=== PATIENT | female | born 1940 | race Caucasian/White ===

== ENCOUNTER 2021-12-11 09:50 | Emergency (ER) | payer OTHER ==
--- OUTSIDE RECORDS SUMMARY | 2021-12-11 09:57 | XMS REPORT | Continuity of Care Document ---
:1940 Author Organization [facility] t Address [address] [place] [address] Care Team Providers Name Role Phone Alek Thompson MD Primary Care Physician [phone] Darci Palumbo CRNA Attending Clinician CARMEN GARCIA Attending Clinician Unavailable Problems This patient has no known problems. Allergies, Adverse Reactions, Alerts This patient has no known allergies or adverse reactions. Social History Social Habit Start Date Stop Date Quantity Comments Source History SDOH [facility] Alcohol Std Drinks Medica l Center History SDOH [facility] Alcohol Binge Medical Par[facility] ter History SDCT [facility] Alcohol Comment Medical C enter Alcohol intake 2018-10-17 2018-10-[address] [facility] 00:[facility] 00:00:00 non-drinker of Medical Ce nter alcohol (finding) Tobacco use and 2018-10-13 2018-10-[address] [facility] exposure 00:[facility]00 [facility]:00 [facility] Center History SDOH 2018-10-13 2018-10-[address] [facility] Alcohol Frequency 00:00:00 00:00:00 Medical Center Sex Assigned At [address] [facility] 00[facility] Smoking Status Start Date Stop Date Source Never smoker [facility] Medications Ordered Filled Start Stop Current Ordering Indication Dosage Frequency Signature Comments Components Source Medication Medication Date Date Medication? Clinician (SIG) Name Name metoprolol Yes 50mg QD Take [address] (TOPROL-XL) 8-02 by mouth Luke s 50 MG 24 hr 19:01: daily. Medi asim tablet 32 Center levothyroxi Yes 100ug Take [address] ne 8-02 mcg by [facility] (SYNTHROID, 19:01: mouth Medic al LEVOTHROID) 32 Every Center 100 MCG morning on tablet an empty stomach. amLODIPine Yes 5mg QD Take [address] (NORVASC) 5 802 by mouth Luke s MG tablet 19:01: daily. Medica l 32 Center losartan-hy Yes 1{tbl} QD Take [address] drochloroth 8 tablet by [facility] 19:01: mouth Medical (HYZAAR) 32 daily. Center 100-12.5 mg per tablet escitalopra Yes 10mg QD Take [address] [facility] oxalate 10-13 by mouth [facility] (LEXAPRO) 19:01: daily. Medica l 10 MG 32 Center tablet Immunizations Ordered Immunization Filled Immunization Date Status Commen ts Source Name Name Tdap 2018-10-13 [facility] 00:00:00 Medical Center Procedures This patient has no known procedures. Encounters Start End Encounter Admission Attending Care Care Encounter Source Date/Time Date/Time Type Type Clinicians Facility Department ID 2021-04-23 Outpatient [facility] [id number] Common 13:42:07 [facility] 2018-10-25 2018-10-25 Anesthesia Palumbo, [facility] [id number] 11:04:00 12:42:00 Darci Montoya [id number] [place] [id number] Surgical [id number] Center 020 Results Test Description Test Time Test Comments Results Result Comments Source MAGNESIUM, RANDOM URINE 2018-10-18 07:17:00 Test Item Value Reference Range Interpretation Comme nts MAGNESIUM URINE (BEAKER) (test code = 834) 82.0 mg/dL Reference Range: No NormalsRAD, WRIST, LEFT, COMPLETE (MIN 3 VIEWS)2018-10-13 18:24:00POST REDUCTION XR IN SPLINT 3 viewsReason for exam:->FALLReason for exam:->ARM PAINFINAL REPORT TECHNIQUE: Minimal three views of the left wrist. INDICATION: FALLARM PAIN. COMPARISON: None. FINDINGS/IMPRESSION:Interval placement of a splint for the left distal radial and ulnar styloid fractures which are now in near anatomic alignment with only slight overlap ofthe distal radial fragment and 0.4 cm radial displacement of the distal radial fragment. Moderate degenerative changes of the carpometacarpal joint of the thumb. Signed: Joshua Abdul MDReport Verified Date/Time: 10/13/2018 18:24:09 Reading Location: [address] Body Reading Room RAD, WRIST, LEFT, COMPLETE (MIN 3 VIEWS)2018-10-13 17:42:00WITH ORTHO AT BEDSIDE (as soon as able) for reductionI am available nowReason for exam:->FALLReason for exam:->ARM PAINShould this be performed at the bedside?->YesFINAL REPORT TECHNIQUE: Minimum three views of the left wrist. One view of the left hip INDICATION: FALLARM PAIN. COMPARISON: Radiographs from two hours prior. FINDINGS:LEFT WRISTInterval reduction of the left distal radius and ulnar styloid fractures with near anatomic alignment and slight overlap. Soft tissue swelling of the wrist.Moderate degenerative changes of the carpometacarpal joint of the thumb. LEFT HIPNo definite fracture on this single view. IMPRESSION: Interval reduction of the left distal radius (with intra-articular extension) and ulnar styloid fractures with near anatomic alignment. Signed: Joshua Abdulort Verified Date/Time: 10/13/2018 17:42:41 Reading Location: [facility] Body Reading Room RAD, HIP, 1 VIEW, [id number] 17:42:00Reason for exam:->FALLReason for exam:->ARM PAINReason for exam:->HIP PAINReason for exam:->KNEE PAINFINAL REPORT TECHNIQUE: Minimum three views of the left wrist. One view of the left hip INDICATION: FALLARM PAIN. COMPARISON: Radiographs from two hours prior. FINDINGS:LEFT WRISTInterval reduction of the left distal radius and ulnar styloid fractures with near anatomic alignment and slight overlap. Soft tissue swelling of the wrist.Moderate degenerative changes of the carpometacarpal joint of the thumb. LEFT HIPNo definite fracture on this single view. IMPRESSION: Interval reduction of the left distal radius (with intra-articular extension) and ulnar styloid fractures with near anatomic alignment. Signed: Joshua Abdul Verified Date/Time: 10/13/2018 17:42:41 Reading Location: [facility] C013Y CT Body Reading Room KETONE, [id number] 15:50:00 Test Item Value Reference Range Interpretation Comments KETONES, BLOOD (BEAKER) (test code 0.1 mmol/L <0.4 = 1103) RAD, ELBOW, 3 VIEWS, [id number] 15:35:00Reason for exam:->traumaShould this be performed at the bedside?->NoFINAL REPORT TECHNIQUE: Frontal, lateral, and oblique radiographs of the left elbow dated 10/13/2018 HISTORY: Trauma COMPARISON: None. FINDINGS:Lateral radiograph was not obtained. No fracture or dislocation. Bones are osteopenic. No joint space narrowing. No bone erosion or soft tissue nodule seen. No radiodense foreign body or subcutaneous emphysema. IMPRESSION:No fracture or dislocation. Signed: Janiya Maria Verified Date/Time: 10/13/2018 15:35:41 Reading Location: [facility] Mammo Reading Room RAD, HIP, 2 VIEWS, [id number] 15:34:00 Reason for exam:->FALLReason for exam:->ARM PAINReason for exam:->HIP PAINReason for exam:->KNEE PAINShould this be performed at the bedside?->NoFINAL REPORT TECHNIQUE: Frontal and lateral radiographs of the left hip dated 10/13/2018 HISTORY: Hip pain COMPARISON: None. FINDINGS:Three radiodense structures projected over the lateral acetabulum and right femoral neck. On the lateral view these are seen to be in the soft tissues . No fracture or dislocation. Bones are osteopenic. No joint space narrowing. No bone erosion or soft tissue nodule seen. No subcutaneous emphysema. IMPRESSION:No fracture or dislocation. Signed: Janiya Maria MDReport Verified Date/Time: 10/13/2018 15:34:06 Reading Location: [facility] Reading Ro om , FOREARM, 2 VIEWS, [id number] 15:28:00Reason for exam:->traumaShould this be performed at the bedside?->NoFINAL REPORT TECHNIQUE: Frontal, lateral, and oblique radiographs of the left wrist as well as frontal and lateral radiographs of the left forearm dated 10/13/2018 HISTORY: Arm pain COMPARISON: None. FINDINGS:There is a horizontal distal radial fracture with dorsal displacement of the distal fracture fragments. An ulnar styloid fractures also noted. The radiocarpal joint is intact.Bones are osteopenic. No joint space narrowing. No bone erosion or soft tissue nodule seen. No radiodense foreign body or subcutaneous emphysema. IMPRESSION:Distal radial and ulnar fractures as described above. Signed: Janiya Maria MDReport Verified Date/Time: 10/13/2018 15:28:53 Reading Location: [facility] Reading Room RAD, WRIST, LEFT, COMPLETE (MIN 3 VIEWS)2018-10-13 15:28:00Reason for exam:- >FALLReason for exam:->ARM PAINReason for exam:->HIP PAINReason for exam:->KNEE PAINShould this be performed at the bedside?->NoFINAL REPORT TECHNIQUE: Frontal, lateral, and oblique radiographs of the left wrist as well as frontal and lateral radiographs of the left forearm dated 10/13/2018 HISTORY: Arm pain COMPARISON: None. FINDINGS:There is a horizontal distal radial fracture with dorsal displacement of the distal fracture fragments. An ulnar styloid fractures also noted. The radiocarpal joint is intact.Bones are osteopenic. No joint space narrowing. No bone erosion or soft tissue nodule seen. No radiodense foreign body or subcutaneous emphysema. IMPRESSION:Distal radial and ulnar fractures as described above. Signed: Janiya Maria MDReport Verified Date/Time: 10/13/2018 15:28:53 Reading Location: [facility] Reading Room [facility] [id number] 14:37:00 Test Item Value Reference Range Interpretation Comments SODIUM (BEAKER) 133 meq/L 136-145 L (test code = 381) POTASSIUM (BEAKER) 4.6 meq/L 3.5-5.1 (test code = 379) CHLORIDE (BEAKER) 103 meq/L 98-107 (test code = 382) CO2 (BEAKER) (test 18 meq/L 22-29 L code = 355) BLOOD UREA NITROGEN 26 mg/dL 7-21 H (BEAKER) (test code = 354) CREATININE (BEAKER) 1.47 mg/dL 0.57-1.25 H (test code = 358) GLUCOSE RANDOM 410 mg/dL 70-105 HH (BEAKER) (test code = 652) CALCIUM (BEAKER) 9.5 mg/dL 8.4-10.2 (test code = 697) EGFR (BEAKER) (test mL/min/1.73 INSUFFIC IENT CLINICAL code = 1092) sq m DATA TO CALCULA TE ESTIMATED GFR. CBC W/PLT COUNT & AUTO [id number] 14:25:00 Test Item Value Reference Range Interpretation Comments WHITE BLOOD CELL COUNT (BEAKER) 12.8 K/ L 3.5-10.5 H (test code = 775) RED BLOOD CELL COUNT (BEAKER) 4.50 M/ L 3.93-5.22 (test code = 761) HEMOGLOBIN (BEAKER) (test code = 13.9 GM/DL 11.2-15.7 410) HEMATOCRIT (BEAKER) (test code = 41.6 % 34.1-44.9 411) MEAN CORPUSCULAR VOLUME (BEAKER) 92.4 fL 79.4-94.8 (test code = 753) MEAN CORPUSCULAR HEMOGLOBIN 30.9 pg 25.6-32.2 (BEAKER) (test code = 751) MEAN CORPUSCULAR HEMOGLOBIN CONC 33.4 GM/DL 32.2-35.5 (BEAKER) (test code = 752) RED CELL DISTRIBUTION WIDTH 13.2 % 11.7-14.4 (BEAKER) (test code = 412) PLATELET COUNT (BEAKER) (test 242 K/CU MM 150-450 code = 756) MEAN PLATELET VOLUME (BEAKER) 9.6 fL 9.4-12.3 (test code = 754) NUCLEATED RED BLOOD CELLS 0 /100 WBC 0-0 (BEAKER) (test code = 413) NEUTROPHILS RELATIVE PERCENT 81 % (BEAKER) (test code = 429) LYMPHOCYTES RELATIVE PERCENT 11 % (BEAKER) (test code = 430) MONOCYTES RELATIVE PERCENT 5 % (BEAKER) (test code = 431) EOSINOPHILS RELATIVE PERCENT 2 % (BEAKER) (test code = 432) BASOPHILS RELATIVE PERCENT 1 % (BEAKER) (test code = 437) NEUTROPHILS ABSOLUTE COUNT 10.34 K/ L 1.56-6.13 H (BEAKER) (test code = 670) LYMPHOCYTES ABSOLUTE COUNT 1.36 K/ L 1.18-3.74 (BEAKER) (test code = 414) MONOCYTES ABSOLUTE COUNT (BEAKER) 0.69 K/ L 0.24-0.36 H (test code = 415) EOSINOPHILS ABSOLUTE COUNT 0.28 K/ L 0.04-0.36 (BEAKER) (test code = 416) BASOPHILS ABSOLUTE COUNT (BEAKER) 0.06 K/ L 0.01-0.08 (test code = 417) IMMATURE GRANULOCYTES-RELATIVE 0 % 0-1 PERCENT (BEAKER) (test code = 4497)
[2021-12-11] MEDS ORDERED: ACETAMINOPHEN 500 MG TAB ONE (11:17)
[2021-12-11] MEDS ORDERED: HYDRALAZINE HCL 20 MG/ML VIAL ONE ×2 (11:17→15:01)
[2021-12-11 11:33] LABS: Absolute Lymphocytes (CBC) 1.5 K/uL (0.7-4.9); Hematocrit 41.4 % (36.0-45.0); Lymphocytes % 20.4 % (15.3-44.8); MCV 89.9 fL (80-100); MPV 7.2 fL (7.6-11.3)
--- NOTE | 2021-12-11 11:46 | RAD REPORT ---
EXAM DESCRIPTION: CT - Head Brain Wo Cont - 12/11/2021 11:36 am CLINICAL HISTORY: Headache COMPARISON: None. TECHNIQUE: Computed axial tomography of the head was obtained. IV contrast was not requested. All CT scans are performed using dose optimization technique as appropriate and may include automated exposure control or mA/KV adjustment according to patient size. FINDINGS: An intracranial bleed is not seen . The ventricles are normal in caliber. Mild low-density areas within periventricular, deep and subcortical white matter likely ischemic blue ges secondary to small vessel disease No extra-axial fluid collection is noted. Fluid within the sinuses/ mastoids is not seen. IMPRESSION: No acute intracranial abnormality is seen. If patient's symptoms persist MRI of the bra in would be recommended.
--- NOTE | 2021-12-11 11:49 | RAD REPORT ---
EXAM DESCRIPTION: Branden Single View12/11/2021 11:36 am CLINICAL HISTORY: Hypertension COMPARISON: 2012 FINDINGS: The lungs appear clear of acute infiltrate. The heart is normal size IMPRESSION: No acute abnormalities displayed
[2021-12-11 11:54] LABS: Potassium 3.3 mmol/L (3.5-5.1)
--- NOTE | 2021-12-11 12:40 | EDPHYS ---
Physician Documentation [facility] Name: Joanne Abraham Age: 81 yrs Sex: Female : 1940 Arrival Date: 12/11/2021 Time: 09:57 Bed 17 Private MD: ED Physician Aris Quiñonez HPI: 12/11 17:28 This 81 yrs old Female presents to ER via EMS with complaints of High Blood Pressure. kdr 17:28 Patient was recently switched from metoprolol to hydralazine for blood pressure kdr control. Last 24 to 48 hours she has not felt right. She has felt generally tired and feels like her head is swimming with a mild frontal headache. Additionally, her blood pressure has not been as well-controlled as previously.. Onset: The symptoms/episode began/occurred gradually, 3 day(s) ago. Severity of symptoms: At their worst the symptoms were mild moderate just prior to arrival, in the emergency department the symptoms are unchanged. The patient has not experienced similar symptoms in the past. The patient has been recently seen by a physician: the patient's primary care provider, Dr. Thompson. Historical: - Allergies: 10:08 No Known Allergies; ll1 - PMHx: 10:08 Diabetes mellitus; Hypertensive disorder; Hypothyroidism; Hypercholesterolemia; ll1 - PSHx: 10:08 None; ll1 - Immunization history:: Client reports receiving the 2nd dose of the Covid vaccine. - Social history:: Smoking status: Patient/guardian denies using tobacco, the patient reports quitting approximately 20 years ago. ROS: 17:28 Constitutional: Negative for fever, chills, and weight loss, Eyes: Negative for injury, kdr pain, redness, and discharge, Neck: Negative for injury, pain, and swelling, Cardiovascular: Negative for chest pain, palpitations, and edema, Respiratory: Negative for shortness of breath, cough, wheezing, and pleuritic chest pain, Back: Negative for injury and pain, : Negative for injury, bleeding, discharge, and swelling, MS/Extremity: Negative for injury and deformity, Skin: Negative for injury, rash, and discoloration, Neuro: Negative for headache, weakness, numbness, tingling, and seizure activity. Psych: Negative for depression, anxiety, suicide ideation, homicidal ideation, and hallucinations, Allergy/Immunology: Negative for hives, rash, and allergies, Endocrine: Negative for neck swelling, polydipsia, polyuria, polyphagia, and marked weight changes, Hematologic/Lymphatic: Negative for swollen nodes, abnormal bleeding, and unusual bruising. 17:28 Abdomen/GI: Positive for 17:28 Neuro: Positive for dizziness, headache, weakness. Exam: 17:28 Constitutional: This is a well developed, well nourished patient who is awake, alert, kdr and in no acute distress. Head/Face: Normocephalic, atraumatic. Eyes: Pupils equal round and reactive to light, extra-ocular motions intact. Lids and lashes normal. Conjunctiva and sclera are non-icteric and not injected. Cornea within normal limits. Periorbital areas with no swelling, redness, or edema. Neck: Trachea midline, no thyromegaly or masses palpated, and no cervical lymphadenopathy. Supple, full range of motion without nuchal rigidity, or vertebral point tenderness. No Meningismus. Chest/axilla: Normal chest wall appearance and motion. Nontender with no deformity. No lesions are appreciated. Cardiovascular: Regular rate and rhythm with a normal S1 and S2. No gallops, murmurs, or rubs. Normal PMI, no JVD. No pulse deficits. Respiratory: Lungs have equal breath sounds bilaterally, clear to auscultation and percussion. No rales, rhonchi or wheezes noted. No increased work of breathing, no retractions or nasal flaring. Abdomen/GI: Soft, non-tender, with normal bowel sounds. No distension or tympany. No guarding or rebound. No evidence of tenderness throughout. Back: No spinal tenderness. No costovertebral tenderness. Full range of motion. Skin: Warm, dry with normal turgor. Normal color with no rashes, no lesions, and no evidence of cellulitis. MS/ Extremity: Pulses equal, no cyanosis. Neurovascular intact. Full, normal range of motion. Neuro: Awake and alert, GCS 15, oriented to person, place, time, and situation. Cranial nerves II-XII grossly intact. Motor strength 5/5 in all extremities. Sensory grossly intact. Cerebellar exam normal. Normal gait. Psych: Awake, alert, with orientation to person, place and time. Behavior, mood, and affect are within normal limits. Vital Signs: 10:09 Pulse 91; Resp 17; Temp 98.2; Pulse Ox 97% ; Weight 82.55 kg; Height 5 ft. 4 in. ll1 (162.56 cm); Pain 5/10; 10:09 BP 195 / 84; Pulse 86; kr3 11:27 BP 197 / 90; Pulse 83; ap3 11:49 BP 171 / 74; ap3 12:40 BP 139 / 65; Pulse 98; Resp 20; Pulse Ox 98% on R/A; eh3 13:40 BP 176 / 78; Pulse 100; Resp 18; Pulse Ox 98% on R/A; eh3 14:40 BP 189 / 78; Pulse 80; Resp 18; Pulse Ox 96% on R/A; eh3 15:40 BP 125 / 63; Pulse 97; Resp 15; Pulse Ox 98% on R/A; eh3 10:09 Body Mass Index 31.24 (82.55 kg, 162.56 cm) ll1 MDM: 12:40 Patient medically screened. kdr 17:28 Data reviewed: vital signs, nurses notes, lab test result(s), radiologic studies. kdr Counseling: I had a detailed discussion with the patient and/or guardian regarding: the historical points, exam findings, and any diagnostic results supporting the discharge/admit diagnosis, lab results, radiology results, the need for outpatient follow up. ED course: I spoke with Dr. Thompson and he advised that the patient should continue with metoprolol 50 mg p.o. daily and follow-up with him in the office. During the stay, the patient's blood pressure responded well initially to hydralazine but then began to elevate again. She was given more hydralazine and the 50 mg of metoprolol. Patient had not taking any blood pressure control medication as yet today. Patient improved and was discharged in good condition. Patient was happy with the care provided plan for discharge and follow-up. 12/11 11:14 Order name: Basic Metabolic Panel kdr 12/11 11:14 Order name: CBC with Diff kdr 12/11 11:14 Order name: NT PRO-BNP kdr 12/11 11:14 Order name: Troponin HS kdr 12/11 11:35 Order name: CBC with Automated Diff; Complete Time: 12:34 EDMS 12/11 11:54 Order name: Basic Metabolic Panel; Complete Time: 12:34 EDMS 12/11 11:14 Order name: XRAY Chest (1 view) kdr 12/11 11:14 Order name: CT Head Brain wo Cont kdr 12/11 11:46 Order name: CT; Complete Time: 12:34 EDMS 12/11 11:49 Order name: RAD; Complete Time: 12:34 EDIA 12/11 11:54 Order name: Troponin High Sensitivity; Complete Time: 12:34 EDIA 12/11 11:54 Order name: NT PRO-BNP; Complete Time: 12:34 EDIA 12/11 11:14 Order name: VS Recheck; Complete Time: 11:30 kdr 12/11 11:14 Order name: EKG; Complete Time: 11:15 kdr 12/11 11:14 Order name: Cardiac monitoring; Complete Time: 11:14 kdr 12/11 11:14 Order name: EKG - Nurse/Tech; Complete Time: 11:14 kdr 12/11 11:14 Order name: IV Saline Lock; Complete Time: 11:30 kdr 12/11 11:14 Order name: Labs collected and sent; Complete Time: 11:30 [facility] 12/11 11:14 Order name: O2 Per Protocol; Complete Time: 11:14 kdr 12/11 11:14 Order name: O2 Sat Monitoring; Complete Time: 11:14 kdr Administered Medications: 11:27 Drug: hydrALAZINE 20 mg Route: IVP; Site: right antecubital; ap3 12:39 Follow up: Response: Blood pressure is lowered eh3 11:27 Drug: Tylenol 1000 mg Route: PO; ap3 12:39 Follow up: Response: Pain is decreased eh3 12:49 Not Given (Physician Discretion): Metoprolol TARTRATE 50 mg PO once eh3 13:34 Drug: Motrin (ibuprofen) 600 mg Route: PO; eh3 14:37 Follow up: Response: Pain is unchanged, physician notified eh3 14:37 Drug: Metoprolol TARTRATE 50 mg Route: PO; eh3 15:44 Follow up: Response: Blood pressure is unchanged eh3 15:44 Drug: hydrALAZINE 10 mg Route: IVP; Site: right antecubital; eh3 15:44 Follow up: Response: Blood pressure is lowered eh3 Disposition Summary: 12/11/21 12:40 Discharge Ordered Location: Home kdr Problem: new kdr Symptoms: have improved kdr Condition: Stable kdr Diagnosis - Hypertensive heart disease without heart failure kdr Followup: kdr - With: Alek Thompson MD - When: 2 - 3 days - Reason: If symptoms return, Further diagnostic work-up, Recheck today's complaints, Continuance of care, Re-evaluation by your physician Discharge Instructions: - Discharge Summary Sheet kdr - Hypertension, Adult, [id number] kdr Forms: - Medication Reconciliation Form kdr - Thank You Letter kdr Prescriptions: - Metoprolol Tartrate 50 mg Oral Tablet - take 1 tablet by ORAL route once daily take with meal; 20 tablet; Refills: 0, kdr Product Selection Permitted Signatures: Dispatcher [employer] Aris Rosas MD MD kdr Amna Soriano RN RN ap3 Rafiq Cuevas RN RN ll1 Smitha Peralta RN RN eh3
--- NOTE | 2021-12-11 12:40 | ER ---
Nurse's Notes [facility] Name: Joanne Abraham Age: 81 yrs Sex: Female : 1940 Arrival Date: 12/11/2021 Time: 09:57 Bed 17 Private MD: Diagnosis: Hypertensive heart disease without heart failure Presentation: 12/11 10:09 Chief complaint: Patient states: Her Doctor took her off metoprolol and started her on ll1 hydralazine for the past 3 days. Yesterday, she just didn't feel right. Export tired after going to [employer] [facility] from pharmacy. Feels like her head is swimming. Coronavirus screen: Vaccine status: Patient reports receiving the 2nd dose of the covid vaccine. Client denies travel out of the [place] in the last 14 days. At this time, the client does not indicate any symptoms associated with coronavirus-19. Ebola Screen: Patient denies travel to an Ebola-affected area in the 21 days before illness onset. Initial Sepsis Screen: Does the patient meet any 2 criteria? HR > 90 bpm. No. Patient's initial sepsis screen is negative. Does the patient have a suspected source of infection? No. Patient's initial sepsis screen is negative. Risk Assessment: Do you want to hurt yourself or someone else? Patient reports no desire to harm self or others. Onset of symptoms was December 10, 2021. 10:09 Method Of Arrival: EMS ll1 10:09 Acuity: CARLY 3 ll1 10:12 Chief complaint: EMS states: BP 180/100, 200/100, HR 90 with PVC's . Fingerstick 160. ll1 20 G R AC. Triage Assessment: 10:11 General: Appears in no apparent distress. Behavior is calm, cooperative, appropriate ll1 for age. Pain: Complains of pain in neck Pain currently is 5 out of 10 on a pain scale. Quality of pain is described as aching. Neuro: Reports dizziness, weakness. Musculoskeletal: Reports pain in neck. Historical: - Allergies: 10:08 No Known Allergies; ll1 - PMHx: 10:08 Diabetes mellitus; Hypertensive disorder; Hypothyroidism; Hypercholesterolemia; ll1 - PSHx: 10:08 None; ll1 - Immunization history:: Client reports receiving the 2nd dose of the Covid vaccine. - Social history:: Smoking status: Patient/guardian denies using tobacco, the patient reports quitting approximately 20 years ago. Screenin:30 Abuse screen: Denies threats or abuse. Nutritional screening: No deficits noted. ap3 Tuberculosis screening: No symptoms or risk factors identified. Fall Risk None identified. Assessment: 12:40 General: Appears in no apparent distress. comfortable, Behavior is calm, cooperative, eh3 appropriate for age. Pain: Denies pain. Neuro: Level of Consciousness is awake, alert, obeys commands, Oriented to person, place, time, situation. Cardiovascular: Capillary refill < 3 seconds Patient's skin is warm and dry. Respiratory: Airway is patent Respiratory effort is even, unlabored. GI: No signs and/or symptoms were reported involving the gastrointestinal system. : No signs and/or symptoms were reported regarding the genitourinary system. EENT: No signs and/or symptoms were reported regarding the EENT system. Derm: No signs and/or symptoms reported regarding the dermatologic system. Musculoskeletal: Range of motion: intact in all extremities. 13:40 Reassessment: Patient and/or family updated on plan of care and expected duration. Pain eh3 level reassessed. Patient is alert, oriented x 3, equal unlabored respirations, skin warm/dry/pink. 14:40 Reassessment: Patient and/or family updated on plan of care and expected duration. Pain eh3 level reassessed. Patient is alert, oriented x 3, equal unlabored respirations, skin warm/dry/pink. Vital Signs: 10:09 Pulse 91; Resp 17; Temp 98.2; Pulse Ox 97% ; Weight 82.55 kg; Height 5 ft. 4 in. ll1 (162.56 cm); Pain 5/10; 10:09 BP 195 / 84; Pulse 86; kr3 11:27 BP 197 / 90; Pulse 83; ap3 11:49 BP 171 / 74; ap3 12:40 BP 139 / 65; Pulse 98; Resp 20; Pulse Ox 98% on R/A; eh3 13:40 BP 176 / 78; Pulse 100; Resp 18; Pulse Ox 98% on R/A; eh3 14:40 BP 189 / 78; Pulse 80; Resp 18; Pulse Ox 96% on R/A; eh3 15:40 BP 125 / 63; Pulse 97; Resp 15; Pulse Ox 98% on R/A; eh3 10:09 Body Mass Index 31.24 (82.55 kg, 162.56 cm) ll1 ED Course: 09:57 Patient arrived in ED. eb 10:02 Arm band placed on Patient placed in an exam room, on a stretcher. ll1 10:11 Aris Quiñonez MD is Attending Physician. kdr 10:11 Triage completed. ll1 10:13 Maintain EMS IV. Dressing intact. Good blood return noted. Site clean \T\ dry. Gauge \T\ ll 1 site: 20 G R AC. 10:20 Amna Soriano, RIVERA is Primary Nurse. ap3 10:50 EKG done, by ED staff, reviewed by Aris Quiñonez MD. ap3 11:30 Patient has correct armband on for positive identification. Placed in gown. Bed in low ap3 position. Call light in reach. Side rails up X 1. Adult w/ patient. Client placed on continuous cardiac and pulse oximetry monitoring. NIBP monitoring applied. 12:39 Alek Thompson MD is Referral Physician. kdr 13:10 Diet: Patient given snack. Patient given water. Tolerated well. eh3 15:45 No provider procedures requiring assistance completed. IV discontinued, intact, eh3 bleeding controlled, No redness/swelling at site. Pressure dressing applied. Administered Medications: 11:27 Drug: hydrALAZINE 20 mg Route: IVP; Site: right antecubital; ap3 12:39 Follow up: Response: Blood pressure is lowered eh3 11:27 Drug: Tylenol 1000 mg Route: PO; ap3 12:39 Follow up: Response: Pain is decreased eh3 12:49 Not Given (Physician Discretion): Metoprolol TARTRATE 50 mg PO once eh3 13:34 Drug: Motrin (ibuprofen) 600 mg Route: PO; eh3 14:37 Follow up: Response: Pain is unchanged, physician notified eh3 14:37 Drug: Metoprolol TARTRATE 50 mg Route: PO; eh3 15:44 Follow up: Response: Blood pressure is unchanged eh3 15:44 Drug: hydrALAZINE 10 mg Route: IVP; Site: right antecubital; eh3 15:44 Follow up: Response: Blood pressure is lowered eh3 Medication: 11:30 VIS not applicable for this client. ap3 Outcome: 12:40 Discharge ordered by . kdr 15:45 Discharged to home ambulatory, with family. eh3 15:45 Condition: stable 15:45 Discharge instructions given to patient, Instructed on discharge instructions, follow up and referral plans. medication usage, Demonstrated understanding of instructions, follow-up care, medications, Prescriptions given X 1. 15:45 Patient left the ED. eh3 Signatures: Aris Quiñonez MD MD kdr Amna Soriano RN RN ap3 Brie Bell Lynsay, RN RN ll1 Smitha Peralta RN RN eh3 Belkis Rod RN RN kr3 Corrections: (The following items were deleted from the chart) 13:34 13:25 Discharged to home via wheelchair, with significant other, 3 eh3 13:34 13:25 Condition: stable 3 eh3 13:34 13:25 Discharge instructions given to patient, family, Instructed on discharge eh3 instructions, follow up and referral plans. medication usage, Demonstrated understanding of instructions, follow-up care, medications, Prescriptions given X 1, eh3 15:45 13:25 No provider procedures requiring assistance completed. eh3 eh3 15:45 13:25 IV discontinued, intact, bleeding controlled, No redness/swelling at site. eh3 Pressure dressing applied, eh3
[2021-12-11] MEDS ORDERED: IBUPROFEN 200 MG TAB PO ONE (13:28)
[2021-12-11] MEDS ORDERED: IBUPROFEN 400 MG TAB ONE (13:29)
[2021-12-11] MEDS ORDERED: METOPROLOL TAR 50 MG TAB ONE (14:11)
[2021-12-12 04:03] VITALS: TEMP 98.2
[2021-12-12 04:09] VITALS: BP 125/63; O2SAT 98
--- NOTE | 2021-12-13 07:47 | EKG ---
Test Date: 2021-12-11 Test Time: 10:38:25 Television Writer: ALP MEASUREMENT RESULTS: Intervals: Rate: 84 AZ: 194 QRSD: 82 QT: 392 QTc: 463 [place]: P: 48 AZ: 194 QRS: 51 T: 50 INTERPRETIVE STATEMENTS: Normal sinus rhythm Normal ECG No previous ECG available for comparison Electronically Signed On 12-13-21 07:44:28 CDT by Darron Montgomery
== END 2021-12-11 15:45 | disposition home or self-care (01) ==
LOC: ER 09:50
DX: I11.9 Hypertensive heart disease without heart failure (principal); I10 Essential (primary) hypertension
CPT/HCPCS: 93005; 85025; 80048; 36415; 84484; 83880; 70450; 71045; 96374; 99284; J0360 ×2

== ENCOUNTER 2022-04-11 02:34 | Inpatient (IN) | payer OTHER ==
--- OUTSIDE RECORDS SUMMARY | 2022-04-11 02:37 | XMS REPORT | Continuity of Care Document ---
:1940 Author Organization [facility] t Address [address] [place] [address] Care Team Providers Name Role Phone Alek Thompson MD Primary Care Physician [phone] Darci Palumbo CRNA Attending Clinician CARMEN GARCIA Attending Clinician Unavailable Problems This patient has no known problems. Allergies, Adverse Reactions, Alerts This patient has no known allergies or adverse reactions. Social History Social Habit Start Date Stop Date Quantity Comments Source History SDOH [facility] Alcohol Std Drinks Medica [facility] Center History SDOH [facility] Alcohol Binge Medical [facility] History SDMA [facility] Alcohol Comment Medical C [...] Date Source Never smoker [facility] Medications Ordered Filled Start Stop Current Ordering Indication Dosage Frequency Signature Comments Components Source Medication Medication Date Date Medication? Clinician (SIG) Name Name levothyroxi Yes 100ug Take [address] ne 8-02 mcg [facility] (SYNTHROID, 19:01: mouth Medic al LEVOTHROID) 32 Every Center 100 MCG morning on tablet an empty stomach. amLODIPine Yes 5mg QD Take [address] (NORVASC) 5 8-02 by mouth Luke s MG tablet 19:01: daily. Medica l 32 Center losartan-hy Yes 1{tbl} QD Take [address] drochloroth 8-02 tablet by Edin es iazide 19:01: mouth Medical (HYZAAR) 32 daily. Center 100-12.5 mg per tablet escitalopra Yes 10mg QD Take [address] [facility] [address] [facility] oxalate 8-02 by mouth [facility] (LEXAPRO) 19:01: daily. Medica l 10 MG 32 Center tablet metoprolol Yes 50mg QD Take [address] (TOPROL-XL) 8-02 by mouth Luke s 50 MG 24 hr 19:01: daily. Medi asim tablet 32 Center metoprolol Yes 50mg QD Take 50 mg [...] [address] (NORVASC) 5 8-02 by mouth Luke s MG tablet 19:01: daily. Medica l 32 Center losartan-hy Yes 1{tbl} QD Take [address] drochloroth 8-02 tablet by Edin es iazide 19:01: mouth Medical (HYZAAR) 32 daily. Center 100-12.5 mg per tablet escitalopra Yes 10mg QD Take [address] [address] [facility] oxalate 8-02 by mouth [facility] (LEXAPRO) 19:01: daily. Medica l 10 MG 32 Center tablet Immunizations Ordered Immunization Filled Immunization Date Status Commen ts Source Name Name Tdap 2018-10-[address] [facility] 00:00:00 [facility] Center Tdap 2018-10-[address] [facility] 00:00:00 [facility] Center Procedures This patient has no known procedures. Encounters Start End Encounter Admission Attending Care Care Encounter Source Date/Time Date/Time Type Type Clinicians Facility Department ID 2021-04-[address] [facility] [id number] Common 13:42:07 [facility] 2018-10-25 2018-10-25 Anesthesia Pal[facility] [id number] 11:04:00 12:42:00 Darci Montoya [id number] [place] [id number] Surgical [id number] Center 020 Results Test Description Test Time [...] MDReport Verified Date/Time: 10/13/2018 18:24:09 Reading Location: [facility] B1 C013Y CT Body Reading Room RAD, WRIST, LEFT, [...] with near anatomic alignment. Signed: Joshua Abdul MDReport Verified Date/Time: 10/13/2018 17:42:41 Reading Location: [address] Body Reading Room RAD, HIP, 1 VIEW, [id number] 17:42:00Reason for exam:->FALLReason for exam:->ARM PAINReason for [...] with near anatomic alignment. Signed: Joshua Abdul MDReport Verified Date/Time: 10/13/2018 17:42:41 Reading Location: [address] Body Reading Room KETONE, [id number] 15:50:00 Test Item Value Reference Range Interpretation Comments KETONES, BLOOD (BEAKER) (test code 0.1 mmol/L <0.4 = 1103) RAD, ELBOW, 3 VIEWS, [id number] 15:35:00Reason for exam:->traumaShould this be performed at the bedside?->NoFINAL REPORT TECHNIQUE: Frontal, lateral, and oblique radiographs of the left elbow dated 10/13/2018 HISTORY: Trauma COMPARISON: None. FINDINGS:Lateral radiograph was not obtained. No fracture or dislocation. Bones are osteopenic. No joint space narrowing. No bone erosion or soft tissue nodule seen. No radiodense foreign body or subcutaneous emphysema. IMPRESSION:No fracture or dislocation. Signed: Janiya Mariaeport Verified Date/Time: 10/13/2018 15:35:41 Reading Location: [facility] Mammo Reading Room RAD, HIP, 2 VIEWS, [id number] 15:34:00 Reason for exam:->FALLReason for exam:->ARM PAINReason [...] emphysema. IMPRESSION:No fracture or dislocation. Signed: Janiya Mariaeport Verified Date/Time: 10/13/2018 15:34:06 Reading Location: [facility] Reading Ro om , FOREARM, 2 VIEWS, [id number] 15:28:00Reason for exam:->traumaShould this be performed at [...] MDReport Verified Date/Time: 10/13/2018 15:28:53 Reading Location: [facility] Reading Room RAD, WRIST, LEFT, COMPLETE (MIN [...] MDReport Verified Date/Time: 10/13/2018 15:28:53 Reading Location: [facility] Reading Room [facility] [id number] 14:37:00 Test Item Value Reference Range Interpretation [...] ESTIMATED GFR. CBC W/PLT COUNT & AUTO [id number] 14:25:00 Test Item Value Reference Range Interpretation [...] % 0-1 PERCENT (BEAKER) (test code = 2808)
[2022-04-11 03:13] LABS: Absolute Lymphocytes (CBC) 2.1 K/uL (0.7-4.9); Hematocrit 41.7 % (36.0-45.0); Lymphocytes % 18.6 % (15.3-44.8); MCV 90.4 fL (80-100); MPV 7.1 fL (7.6-11.3); RBC Red Blood Cell Count 4.62 M/uL (3.86-4.86)
[2022-04-11 03:19] LABS: Protime INR 0.97
[2022-04-11 03:31] LABS: Albumin 3.7 g/dL (3.4-5.0); Bilirubin Total 0.7 mg/dL (0.2-1.0); Potassium 3.2 mmol/L (3.5-5.1); Protein, Total 8.1 g/dL (6.4-8.2)
[2022-04-11 04:03] LABS: Urine Blood Negative (Negative); Urine Glucose Trace (Negative); Urine Protein Negative (Negative); Urine Specific Gravity 1.015 (1.005-1.030)
[2022-04-11 04:20] LABS: Urine Bacteria <20 /HPF (<20); Urine RBC <5 /HPF (None Seen)
--- NOTE | 2022-04-11 04:21 | ER ---
Nurse's Notes [facility] Name: Joanne Abraham Age: 82 yrs Sex: Female : 1940 Arrival Date: 04/11/2022 Time: 02:35 Bed 3 Private MD: Diagnosis: Hypothermia, initial encounter;Hypoglycemia, unspecified;Altered mental status, unspecified Presentation: 04/11 02:49 Chief complaint: EMS states: Pt was unresponsive per family. Last seen normal at 10pm jb4 tonight. upon EMS arrival BGL was 32. Given 1 bag of D10 it increased to 260, upon ems arrival to ER BGL was 100, started second bag of d10. rectal temp 93.9. Coronavirus screen: At this time, the client does not indicate any symptoms associated with coronavirus-19. Ebola Screen: No symptoms or risks identified at this time. Initial Sepsis Screen: Does the patient meet any 2 criteria? Temp <36.0*C (96.8*F)) or > 38.3*C (100.9*F). Altered Mental Status. Yes Does the patient have a suspected source of infection? No. Patient's initial sepsis screen is negative. Risk Assessment: Do you want to hurt yourself or someone else? Unable to obtain. Onset of symptoms was April 11, 2022. Transition of care: patient was not received from another setting of care. 02:49 Method Of Arrival: EMS: [facility] jb4 02:49 Acuity: CARLY 2 jb4 Historical: - Allergies: 02:49 No Known Allergies; jb4 - PMHx: 02:49 diabetes mellitus; Hypercholesterolemia; Hypertensive disorder; Hypothyroidism; jb4 - Immunization history:: Adult Immunizations unknown. - Social history:: Smoking status: unknown. Screenin:14 Abuse screen: Denies threats or abuse. Denies injuries from another. Nutritional ll3 screening: No deficits noted. Tuberculosis screening: No symptoms or risk factors identified. Assessment: 03:00 General: Appears ill, obese, Behavior is drowsy, listless. Pain: Unable to use pain jb4 scale. Patient is disoriented. Neuro: Level of Consciousness is lethargic, listless, Oriented to unable to obtain. Cardiovascular: Skin is cool and clammy. Respiratory: Airway is patent Respiratory effort is even, unlabored, Respiratory pattern is regular, symmetrical. GI: No signs and/or symptoms were reported involving the gastrointestinal system. : No signs and/or symptoms were reported regarding the genitourinary system. EENT: No signs and/or symptoms were reported regarding the EENT system. Derm: Skin is intact, Skin is clammy, Skin is pale, Skin temperature is cool. 03:26 Reassessment: Pt is now awake and talking. following command, provider notified. Is now jb4 A\T\0x4. 04:28 Reassessment: Patient appears in no apparent distress at this time. Patient and/or jb4 family updated on plan of care and expected duration. Pain level reassessed. Patient is alert, oriented x 3, equal unlabored respirations, skin warm/dry/pink. 05:06 Reassessment: Patient appears in no apparent distress at this time. Patient and/or jb4 family updated on plan of care and expected duration. Pain level reassessed. Patient is alert, oriented x 3, equal unlabored respirations, skin warm/dry/pink. Vital Signs: 02:57 BP 135 / 70; Pulse 61; Resp 16; Pulse Ox 96% on R/A; Weight 88 kg (M); jb4 03:53 Temp 92.7(C); jb4 04:28 BP 102 / 58; Pulse 64; Resp 17; Temp 94.3(C); Pulse Ox 94% on R/A; jb4 05:06 BP 110 / 61; Pulse 66; Resp 18; Temp 95.4(C); Pulse Ox 97% on R/A; jb4 [place] Coma Score: 03:00 Eye Response: to pain(2). Verbal Response: none(1). Motor Response: none(1). Total: 4. jb4 03:00 Eye Response: to voice(3). Verbal Response: incomprehensible(2). Motor Response: ms3 withdraws from pain(4). Total: 9. 03:26 Eye Response: spontaneous(4). Verbal Response: oriented(5). Motor Response: obeys jb4 commands(6). Total: 15. ED Course: 02:35 Patient arrived in ED. oe 02:42 Branden Parisi DO is Attending Physician. ms3 02:49 Jay James, RN is Primary Nurse. jb4 02:49 Arm band placed on right wrist. jb4 02:53 Triage completed. jb4 03:18 Chest Single View XRAY In Process Unspecified. EDMS 03:29 CT Head Brain wo Cont In Process Unspecified. EDMS 04:00 Holcomb cath inserted, using sterile technique, 16 Fr., by az, balloon inflated, to ll3 gravity drainage, clamped. urine specimen collected. returned jesús urine. Patient tolerated well. 04:14 Patient has correct armband on for positive identification. Placed in gown. Bed in low ll3 position. Call light in reach. Side rails up X2. Adult w/ patient. Client placed on continuous cardiac and pulse oximetry monitoring. NIBP monitoring applied. 04:20 Alek Thompson MD is Hospitalizing Provider. ms3 05:26 No provider procedures requiring assistance completed. Patient admitted, IV remains in vc1 place. Administered Medications: No medications were administered Medication: 05:26 VIS not applicable for this client. vc1 Point of Care Testing: Blood Glucose: 05:06 Blood Glucose: 103 mg/dL; jb4 Ranges: Outcome: 04:20 Decision to Hospitalize by Provider. ms3 05:26 Admitted to ICU accompanied by nurse, via stretcher, room -7, with oxygen, on monitor, vc1 with chart. 05:26 Condition: improved 05:26 Instructed on the need for admit. 05:27 Patient left the ED. vc1 Signatures: Dispatcher [employer] Jay Evans, RN RN jb4 Rafa Lanza Marcus, DO ms3 Jessica Patino RN RN ll3 Megan Petersen RN RN vc1 Corrections: (The following items were deleted from the chart) 03:23 03:20 General: Appears ill, obese, Behavior is drowsy, listless, jb4 jb4 03:23 03:20 Pain: Unable to use pain scale. Patient is disoriented. jb4 jb4 03:23 03:20 Neuro: Level of Consciousness is lethargic, listless, Oriented to unable to jb4 obtain. jb4 03:23 03:20 Cardiovascular: Skin is cool and clammy. jb4 jb4 03:23 03:20 Respiratory: Airway is patent Respiratory effort is even, unlabored, Respiratory jb4 pattern is regular, symmetrical, jb4 : GI: No signs and/or symptoms were reported involving the gastrointestinal system. jb4 jb4 : : No signs and/or symptoms were reported regarding the genitourinary system. [id number] : EENT: No signs and/or symptoms were reported regarding the EENT system. jb4 jb4 : Derm: Skin is intact, Skin is clammy, Skin is pale, Skin temperature is cool jb4 jb4
--- NOTE | 2022-04-11 04:21 | EDPHYS ---
Physician Documentation [facility] Name: Joanne Abraham Age: 82 yrs Sex: Female : 1940 Arrival Date: 04/11/2022 Time: 02:35 Bed 3 Private MD: ED Physician Branden Parisi HPI: 04/11 03:00 This 82 yrs old Female presents to ER via EMS with complaints of Altered mental status. ms3 03:00 82-year-old female with past medical history of diabetes, hypercholesterolemia, ms3 hypertension presents via [facility] for altered mental status. EMS states patient was last seen normal at 10 PM when going to bed. On EMS arrival patient was diaphoretic with a blood glucose of 35. 250 mL of D10 was administered and patient's blood sugar rebounded to 260. On arrival to the emergency department EMS rechecked patient's blood glucose level and found it to be 100. A second 250 mL bag of D10 was hung. Patient is nonverbal at this time limiting HPI.. Historical: - Allergies: 02:49 No Known Allergies; jb4 - PMHx: 02:49 diabetes mellitus; Hypercholesterolemia; Hypertensive disorder; Hypothyroidism; jb4 - Immunization history:: Adult Immunizations unknown. - Social history:: Smoking status: unknown. ROS: 03:00 Unable to obtain ROS due to altered mental status. ms3 04:22 Constitutional: Negative for fever, and chills. ENT: Negative for injury, pain, and ms3 discharge, Neck: Negative for injury, pain, and swelling, Cardiovascular: Negative for chest pain, and palpitations. Respiratory: Negative for shortness of breath, cough, wheezing, and pleuritic chest pain, Abdomen/GI: Negative for abdominal pain, nausea, vomiting, diarrhea, and constipation, MS/Extremity: Negative for injury and deformity, Skin: Negative for injury, rash, and discoloration, Neuro: Negative for headache, weakness, numbness, tingling. 04:22 All other systems are negative. Exam: 03:00 Constitutional: This is a well developed, well nourished patient who is awake, alert, ms3 and in no acute distress. Head/Face: Normocephalic, atraumatic. Eyes: Pupils equal round and reactive to light, extra-ocular motions intact. Lids and lashes normal. Conjunctiva and sclera are non-icteric and not injected. Periorbital areas with no swelling, redness, or edema. Neck: Trachea midline, no cervical lymphadenopathy. Supple, full range of motion without nuchal rigidity, or vertebral point tenderness. No Meningismus. Chest/axilla: Normal chest wall appearance and motion. Nontender with no deformity. Cardiovascular: Regular rate and rhythm with a normal S1 and S2. No gallops, murmurs, or rubs. Normal PMI, no JVD. No pulse deficits. Respiratory: Lungs have equal breath sounds bilaterally, clear to auscultation and percussion. No rales, rhonchi or wheezes noted. No increased work of breathing, no retractions or nasal flaring. Abdomen/GI: Soft, non-tender, with normal bowel sounds. No distension or tympany. No guarding or rebound. No evidence of tenderness throughout. Skin: Warm, dry with normal turgor. Normal color with no rashes, no lesions, and no evidence of cellulitis. 03:00 Neuro: Motor: Sensation: 03:02 ECG was reviewed by the Attending Physician. ms3 Vital Signs: 02:57 BP 135 / 70; Pulse 61; Resp 16; Pulse Ox 96% on R/A; Weight 88 kg (M); jb4 03:53 Temp 92.7(C); jb4 04:28 BP 102 / 58; Pulse 64; Resp 17; Temp 94.3(C); Pulse Ox 94% on R/A; jb4 05:06 BP 110 / 61; Pulse 66; Resp 18; Temp 95.4(C); Pulse Ox 97% on R/A; jb4 Sammy Coma Score: 03:00 Eye Response: to pain(2). Verbal Response: none(1). Motor Response: none(1). Total: 4. jb4 03:00 Eye Response: to voice(3). Verbal Response: incomprehensible(2). Motor Response: ms3 withdraws from pain(4). Total: 9. 03:26 Eye Response: spontaneous(4). Verbal Response: oriented(5). Motor Response: obeys jb4 commands(6). Total: 15. MDM: 02:42 Patient medically screened. ms3 03:03 Differential Diagnosis altered mental status, sepsis, UTI vs PNA vs CVA. ms3 03:29 ED course: Patient is A/O x4, GCS 15 at this time. Will continue to monitor patient.. ms3 04:20 Data reviewed: vital signs, nurses notes, lab test result(s), CBC, electrolytes, ms3 hepatic panel, urinalysis, EKG, radiologic studies, CT scan, plain films, and as a result, I will admit patient. Consideration of Admission/Observation Patient was admitted/placed on observation. Management of patient was discussed with the following: Hospitalist: . I considered the following discharge prescriptions or medication management in the emergency department Medications were administered in the Emergency Department. See MAR. Independent interpretation of the following test(s) in the Emergency Department EKG: See my EKG interpretation above quality assurance monitor body: rate is 62 beats/min, Rhythm is normal sinus rhythm, regular, with no ectopy, Interpretation: normal rate, normal rhythm. Historians other than the Patient: EMS: [facility]. Care significantly affected by the following chronic conditions: Diabetes, Hypertension. Counseling: I had a detailed discussion with the patient and/or guardian regarding: the historical points, exam findings, and any diagnostic results supporting the discharge/admit diagnosis, lab results, radiology results, the need for further work-up and treatment in the hospital. ED course: Patient remains alert and oriented x4, GCS [address] place patient in observation with Dr. Thompson.. 04/11 02:44 Order name: Blood Culture Adult (2) 3 04/11 02:44 Order name: CBC with Diff; Complete Time: 04:12 ms3 04/11 02:44 Order name: CMP; Complete Time: 04:12 04/11 02:44 Order name: Lactate w/ 2H reflex if indic.; Complete Time: 04:12 3 04/11 02:44 Order name: Protime (+inr); Complete Time: 04:12 ms3 04/11 02:44 Order name: Ptt, Activated; Complete Time: 04:12 ms3 04/11 02:44 Order name: Urine Culture ms3 04/11 02:44 Order name: Urine Microscopic Only; Complete Time: 04:20 ms3 04/11 02:44 Order name: Chest Single View XRAY 3 04/11 03:09 Order name: Glucose, Ancillary Testing; Complete Time: 04:12 EDMS 04/11 04:03 Order name: Urine Dipstick-Ancillary; Complete Time: 04:12 EDMS 04/11 04:24 Order name: SARS RAPID; Complete Time: 05:07 ms3 04/11 04:35 Order name: Glucose, Ancillary Testing; Complete Time: 05:07 EDMS 04/11 05:18 Order name: Glucose, Ancillary Testing; Complete Time: 06:26 EDMS 04/11 02:44 Order name: EKG; Complete Time: 02:44 ms3 04/11 02:44 Order name: Accucheck; Complete Time: 04:26 ms3 04/11 02:44 Order name: Cardiac monitoring; Complete Time: 03:05 ms3 04/11 02:44 Order name: EKG - Nurse/Tech; Complete Time: 03:04 ms3 04/11 02:44 Order name: IV Saline Lock - Large Bore; Complete Time: 04:14 ms3 04/11 02:44 Order name: Labs collected and sent; Complete Time: 04:26 ms3 04/11 02:44 Order name: O2 Per Protocol; Complete Time: 04:14 ms3 04/11 02:44 Order name: O2 Sat Monitoring; Complete Time: 04:14 3 04/11 02:44 Order name: Urine Dipstick-Ancillary (obtain specimen); Complete Time: 04:14 ms3 04/11 02:44 Order name: Vital Signs; Complete Time: 04:14 ms3 04/11 02:44 Order name: CT Head Brain wo Cont 3 04/11 04:36 Order name: Holcomb; Complete Time: 04:36 vc1 EC:02 Rate is 61 beats/min. Rhythm is regular. QRS [place] is Normal. SC interval is normal. QRS ms3 interval is normal. QT interval is normal. Clinical impression: NSR w/ Non-specific ST/T Changes and 1st degree block. Interpreted by me. Reviewed by me. Administered Medications: No medications were administered Point of Care Testing: Blood Glucose: 05:06 Blood Glucose: 103 mg/dL; jb4 Ranges: Critical Glucose Levels:Adult <50 mg/dl or >400 mg/dl <40 mg/dl or >180 mg/dl Disposition Summary: 04/11/22 04:20 Hospitalization Ordered Hospitalization Status: Inpatient Admission ms3 Provider: Aelk Thompson ms3 Condition: Stable ms3 Problem: new ms3 Symptoms: are unchanged ms3 Bed/Room Type: Standard ms3 Location: Intensive Care Unit(04/11/22 05:05) mw Room Assignment: 7-(04/11/22 05:05) mw Diagnosis - Hypothermia, initial encounter ms3 - Hypoglycemia, unspecified ms3 - Altered mental status, unspecified ms3 Forms: - Medication Reconciliation Form ms3 - SBAR form ms3 Critical care time excluding procedures: 04:35 Critical care time: Bedside Care: 35 minutes, Consultation: 5 minutes, Family ms3 Intervention: 10 minutes. Total time: 50 minutes Signatures: Dispatcher [employer] EDMS Janett Santana RN RN mw Jay James RN RN jb4 Branden Parisi DO DO ms3 Megan Petersen RN RN vc1 Corrections: (The following items were deleted from the chart) 05:05 04:20 Telemetry/MedSurg (observation) ms3 05:05 04:20 ms3 mw
[2022-04-11] MEDS ORDERED: ONDANSETRON 4 MG/2 ML VIAL IV PRN (04:30)
[2022-04-11 04:58] LABS: SARS-CoV-2 Antigen Rapid Res Negative (Negative)
[2022-04-11] MEDS ORDERED: D5 0.9 NS 1,000 ML IV SCH ×2 (05:00→08:55)
[2022-04-11] MEDS ORDERED: D50W 25 GM/50 ML SYRINGE IV PRN ×2 (05:20→16:33)
[2022-04-11 06:13] VITALS: BMI 45.4
[2022-04-11] MEDS ORDERED: D10W 125 ML IV PRN (06:15)
[2022-04-11] MEDS ORDERED: POTASSIUM 25 MEQ EFFERV TAB PO ONE (07:00)
[2022-04-11] MEDS: MUPIROCIN 2% OINT 22GM TUBE TOP SCH ×2 (08:16→21:10)
[2022-04-11] MEDS ORDERED: MUPIROCIN 2% OINT 22GM TUBE TOP SCH (09:00)
--- NOTE | 2022-04-11 12:12 | P.CNS ---
Date of Consult: 04/11/22 Reason for Consult: Hypoglycemia and hypothermia Chief Complaint: Syncopal attack History of Present Illness: Patient is 82 years old presented to the emergency room with altered mental status she is now alert oriented responsive cooperative does not recall what happened to her apparently she just passed out had this episode before patient is a diabetic there is been no change in her dose of insulin has not taken any other medications found to be hypoglycemic hypothermic is back to her baseline never done this before is any fever or chills Allergies No Known Allergies Allergy (Verified 04/11/22 04:49) - Past Medical/Surgical History Diabetic: Yes -: HTN -: Hypothyroidism - Family History Mother Medical History: Stroke - Social History Smoking Status: Unknown if ever smoked Alcohol use: Yes CD- Drugs: No Caffeine use: Yes Place of Residence: Home Review of Systems 10-point ROS is otherwise unremarkable Physical Examination Temp Pulse Resp BP Pulse Ox 96.8 F 72 19 100/84 95 04/11/22 05:45 04/11/22 11:00 04/11/22 11:00 04/11/22 11:00 04/11/22 11:00 General: Alert, In no apparent distress, Oriented x3 Respiratory: Friction rub Cardiovascular: Normal pulses, Regular rate/rhythm Gastrointestinal: Soft and benign Laboratory Data (last 24 hrs) 04/11/22 02:55: PT 10.7, INR 0.97, APTT 32.3 04/11/22 02:55: Sodium 141, Potassium 3.2 L, BUN 20 H, Creatinine 1.01, Glucose 110 H, Total Bilirubin 0.7, AST 16, ALT 26, Alkaline Phosphatase 76 04/11/22 02:55: WBC 11.30 H, Hgb 13.9, Hct 41.7, Plt Count 240 - Problems (1) Hypoglycemia Current Visit: Yes Status: Acute Plan: Patient is 82 years of age presented with altered mental status she was found to be hypoglycemic hypothermic patient has a history of dementia does take blood pressure pills at home including insulin continue to monitor she is back to her baseline we will check serum cortisol level no clinical evidence of sepsis urinalysis is negative White count is mildly elevated
[2022-04-11] MEDS ORDERED: GLUCAGON 1 MG/VIAL IM PRN (16:33)
--- NOTE | 2022-04-11 20:52 | RAD REPORT ---
EXAM DESCRIPTION: RAD - Chest Single View - 04/11/2022 3:17 am CLINICAL HISTORY: The patient is 82 years old and is Female; AMS TECHNIQUE: Frontal view of the chest. COMPARISON: No relevant prior studies available. FINDINGS: LUNGS: No focal consolidation. PLEURAL SPACE: No pleural effusion. No pneumothorax. HEART: See below. MEDIASTINUM: Prominence of the cardiomediastinal silhouette, likely exaggerated secondary to linda ble technique, lordotic positioning, and patient body habitus. BONES/JOINTS: Bilateral AC joint degenerative changes. IMPRESSION: No acute findings in the chest. Electronically signed by: Octavio Tariq MD 04/11/2022 3:26 AM GAS WELDING EQUIPMENT MECHANIC Due to temporary technical issues with the PACS/Fluency reporting system, reports are being signed by the in house radiologists without review as a courtesy to insure prompt reporting. The interpreting radiologist is fully responsible for the content of the report.
--- NOTE | 2022-04-11 20:58 | RAD REPORT ---
EXAM DESCRIPTION: CT - Head Brain Wo Cont - 04/11/2022 7:19 am CLINICAL HISTORY: The patient is 82 years old and is Female; Altered mental status TECHNIQUE: Axial computed tomography images of the head/brain without intravenous contrast. Sagitt al and coronal reformatted images were created and reviewed. This CT exam was performed using one o r more of the following dose reduction techniques: automated exposure control, adjustment of the mA and/or kV according to patient size, and/or use of iterative reconstruction technique. COMPARISON: CT of the head December 11, 2021 FINDINGS: BRAIN: There is diffuse cerebral atrophy present, consistent with this patient's age. There is patchy hypoattenuation of the deep white matter which is non-specific, but most likely owing to chronic small vessel ischemic change in a patient of this age group. No intracranial hemorrhage , mass effect, midline shift is. There are no extra-axial fluid collections. There is no cerebral e sudha. VENTRICLES: Unremarkable. No ventriculomegaly. BONES/JOINTS: No acute fracture. SOFT TISSUES: Unremarkable. SINUSES: Unremarkable as visualized. No acute sinusitis. MASTOID AIR CELLS: Unremarkable as visualized. No mastoid effusion. ORBITS: Unremarkable as visualized. IMPRESSION: No acute intracranial findings. Electronically signed by: Wendy Christian MD 04/11/2022 3:34 AM RELOCATION COUNSELOR Due to temporary technical issues with the PACS/Fluency reporting system, reports are being signed by the in house radiologists without review as a courtesy to insure prompt reporting. The interpreting radiologist is fully responsible for the content of the report.
[2022-04-11] MEDS: INSULIN -REGULAR HUMAN 50 UNIT/0.5 ML ML SQ SCH (21:11)
[2022-04-11] MEDS ORDERED: ACETAMINOPHEN 325 MG TABLET PO PRN (21:48)
[2022-04-11] MEDS ORDERED: AMLODIPINE 5 MG TAB PO SCH (21:49)
[2022-04-11] MEDS: MEMANTINE HCL 10 MG TABLET PO SCH (22:06)
[2022-04-11] MEDS: carvediloL 25 MG TAB PO SCH (22:06)
[2022-04-12 04:55] LABS: Absolute Lymphocytes (CBC) 2.6 K/uL (0.7-4.9); Hematocrit 38.4 % (36.0-45.0); Lymphocytes % 34.8 % (15.3-44.8); MCV 90.8 fL (80-100); MPV 7.1 fL (7.6-11.3); RBC Red Blood Cell Count 4.23 M/uL (3.86-4.86)
[2022-04-12 05:18] LABS: Potassium 4.7 mmol/L (3.5-5.1)
[2022-04-12] MEDS ORDERED: LEVOTHYROXINE SOD 0.1 MG TAB PO SCH (06:30)
[2022-04-12] MEDS: carvediloL 25 MG TAB PO SCH (06:37)
--- NOTE | 2022-04-12 06:50 | P.SSS ---
Patient History Date of Service: 04/12/22 Reason for admission: HYPOGLYCEMIC ATTACK History of Present Illness: KANNAN IS A DIABETIC FOR LONG DURATION. SHE IS ON THE SAME DOSE OF NOVOLIN 70/30. SHE FORGOT TO CHECK HER GLUCOSE BEFORE SHE TOOK INSULIN DAY BEFORE AND HAD GLUCOSE DOWN TO 18. SHE WAS COMATOSE BUT THEN WOKE UP BACK TO HER NORMAL WITH GLUCOSE CORRCETION IN ER. I TALKED TO HER ABOUT HER TIMINGS AND FOOD INTAKE. SHE MAY HAVE ATE LESS THAN WHAT SHE USUSALLY EATS AND HER TIMING OF INSULIN ARE OFF. Allergies No Known Allergies Allergy (Verified 04/11/22 04:49) Home medications list reviewed: Yes Home Medications: Amlodipine [Norvasc*] 5 mg PO BEDTIME 04/11/22 Carvedilol [Coreg] 25 mg PO BID 04/11/22 Levothyroxine Sodium [Levothyroxine] 100 mcg PO [id number] 04/11/22 Losartan Potassium 100 mg PO DAILY 04/11/22 Memantine HCl [Namenda] 10 mg PO BID 04/11/22 - Past Medical/Surgical History Has patient received pneumonia vaccine in the past: Yes Diabetic: Yes -: HTN -: Hypothyroidism - Family History Mother -: Stroke - Social History Smoking Status: Former smoker Alcohol use: Yes CD- Drugs: No Caffeine use: Yes Place of Residence: Home Review of Systems 10-point ROS is otherwise unremarkable Physical Examination - Vital Signs Temperature: 98.3 F Blood Pressure: 119/62 Pulse: 72 Respirations: 18 Pulse Ox (%): 93 - Physical Exam General: Alert, In no apparent distress, Obese (SHE IS BACK TO HER NORMAL NOW SINCE YESTERDAY AM.) HEENT: Atraumatic, PERRLA, Mucous membr. moist/pink, EOMI, Sclerae nonicteric Neck: Supple, 2+ carotid pulse no bruit, No LAD, Without JVD or thyroid abnormality Respiratory: Clear to auscultation bilaterally, Normal air movement Cardiovascular: Regular rate/rhythm, Normal S1 S2 Gastrointestinal: Normal bowel sounds, No tenderness Musculoskeletal: No tenderness Integumentary: No rashes Neurological: Normal gait, Normal speech, Normal strength at 5/5 x4 extr, Normal tone, Normal affect Lymphatics: No axilla or inguinal lymphadenopathy - Diagnosis (Problem(s)) (1) Hypoglycemia, coma Current Visit: Yes Status: Acute Plan: THIS HAS NOW RESOLVED. Novolin 70/30. She will cut down to 15 units in am and 10 units at night to start with. SHe has to keep them 12 hours apart and half hour before meals. She currently taking them at 9 am and 6 pm. She does not eat half hour after shots. She has to have meal half hour after insulin. She is stable to go home. (2) Hypoglycemia Current Visit: Yes Status: Acute - Disposition Disposition: ROUTINE DISCHARGE Condition: GOOD
[2022-04-12] MEDS: MEMANTINE HCL 10 MG TABLET PO SCH (08:07)
[2022-04-12] MEDS: MUPIROCIN 2% OINT 22GM TUBE TOP SCH (08:07)
[2022-04-12] MEDS: INSULIN -REGULAR HUMAN 50 UNIT/0.5 ML ML SQ SCH (08:08)
[2022-04-12 09:42] VITALS: BP 111/54; TEMP 97.1
[2022-04-12 11:58] VITALS: O2SAT 93
--- NOTE | 2022-04-13 17:04 | EKG ---
Test Date: 2022-04-11 Test Time: 03:02:31 Truck Trailer Mechanic: GREER MEASUREMENT RESULTS: Intervals: Rate: 61 OK: 228 QRSD: 104 QT: 484 QTc: 487 [place]: P: 13 OK: 228 QRS: 34 T: 60 INTERPRETIVE STATEMENTS: Sinus rhythm with 1st degree AV block Increased R/S ratio in V1, consider early transition or posterior infarct Abnormal ECG Compared to ECG 12/11/2021 10:38:25 First degree AV block now present Myocardial infarct finding now present Electronically Signed On 04-13-22 16:58:11 APPARATUS REPAIR MECHANIC by Lisandro Gomez
== END 2022-04-12 10:45 | disposition home or self-care (01) | DRG 639 ==
LOC: ER 02:34 → ERHOLD 04:29 → 3RD-ICU 05:08
PROVIDERS: ADMIT Internal Medicine; ATTEND Internal Medicine
DX: E11.641 Type 2 diabetes mellitus with hypoglycemia with coma (principal); I10 Essential (primary) hypertension; E03.9 Hypothyroidism, unspecified; R68.0 Hypothermia, not associated with low environmental temperature; Z79.890 Hormone replacement therapy; Z79.899 Other long term (current) drug therapy; Z87.891 Personal history of nicotine dependence; Z20.822 Contact with and (suspected) exposure to COVID-19
CPT/HCPCS: 36415; 51702; 70450; 71045; 80048; 80053; 81003; 81015; 82533; 82947; 83605; 84132; 85025; 85610; 85730; 87040; 87811; 93005; 99285; J1815; J7042

== ENCOUNTER → 2023-03-04 | Emergency (ER) | payer OTHER ==
[~2023-03-04] MED LIST: NA CHLORIDE 0.9% 500 ML ONE
[2023-03-04 15:05] LABS: Absolute Lymphocytes (CBC) 1.6 K/uL (0.7-4.9); Hematocrit 41.4 % (36.0-45.0); Lymphocytes % 11.1 % (15.3-44.8); MPV 7.3 fL (7.6-11.3); Platelets 231 thou/uL (152-406)
[2023-03-04 15:10] LABS: Protime INR 1.1
--- NOTE | 2023-03-04 15:11 | RAD REPORT ---
EXAM DESCRIPTION: RADChest Single View03/04/2023 2:49 pm CLINICAL HISTORY: AMS COMPARISON: Chest Single View dated 04/11/2022; Chest Single View dated 12/11/2021; CHEST PA AND LAT 2 VIEW dated 10/11/2012 TECHNIQUE: Portable AP view of the chest. FINDINGS: Central and basilar interstitial prominence. No focal consolidation. No pneumothorax or e ffusion. The cardiomediastinal contours are unremarkable. IMPRESSION: Central and bibasilar interstitial prominence bilaterally. Findings may relate to mild c entral congestion or early edema.
--- NOTE | 2023-03-04 15:18 | RAD REPORT ---
EXAM DESCRIPTION: CT - Head Brain Wo Cont - 03/04/2023 2:43 pm CLINICAL HISTORY: confusion COMPARISON: Head Brain Wo Cont dated 04/11/2022; Head Brain Wo Cont dated 12/11/2021 TECHNIQUE: Noncontrast head CT images ad were obtained without IV contrast. Multiplanar reformats we re generated and reviewed. All CT scans are performed using dose optimization technique as appropriate and may include automated exposure control or mA/KV adjustment according to patient size. FINDINGS: No intracranial hemorrhage, mass, or edema. Midline structures are unremarkable. Normal ventricular caliber for age. Patchy subcortical and deep white matter hypoattenuation, nonspecific, most suggestive of chronic sma ll vessel ischemic changes. Gonzalez-white matter differentiation is preserved, without evidence of acute infarct. No abnormal extra-axial fluid collections. Mastoid air cells and visualized portions of the paranasal sinuses are clear. No acute bony findings. IMPRESSION: No evidence of an acute intracranial process. Nonspecific white matter hypodensities as above, most suggestive of chronic small vessel ischemic yulisa nges.
[2023-03-04 15:24] LABS: Albumin 3.4 g/dL (3.4-5.0); Bilirubin Direct 0.3 mg/dL (0-0.2); Bilirubin Indirect, Calculated 0.8 mg/dL (0.2-0.8); Bilirubin Total 1.1 mg/dL (0.2-1.0); Magnesium 2.1 mg/dL (1.6-2.4); Potassium 4.3 mEq/L (3.5-5.1); Protein, Total 8.4 g/dL (6.4-8.2); Troponin High Sensitivity 10.1 pg/mL (<58.9)
--- NOTE | 2023-03-04 17:30 | ER ---
Nurse's Notes [facility] Name: Joanne Abraham Age: 83 yrs Sex: Female : 1940 Arrival Date: 03/04/2023 Time: 14:04 Bed 7 Private MD: Diagnosis: Hypoglycemia, unspecified;Altered mental status, unspecified;Dehydration Presentation: 03/04 14:32 Chief complaint: EMS states: they were called for a patient who was confused at around ap3 1200 today. patient reports the symptoms had resolved prior to EMS arrival. patient is currently A/O X"s 4 during triage. EMS established a 20g in the right AC no meds given. Coronavirus screen: At this time, the client does not indicate any symptoms associated with coronavirus-19. Ebola Screen: No symptoms or risks identified at this time. Initial Sepsis Screen: Does the patient meet any 2 criteria? No. Patient's initial sepsis screen is negative. Does the patient have a suspected source of infection? No. Patient's initial sepsis screen is negative. Risk Assessment: Do you want to hurt yourself or someone else? Patient reports no desire to harm self or others. Onset of symptoms was March 04, 2023 at 12:00. 14:32 Method Of Arrival: EMS: [facility] ap3 14:32 Acuity: CARLY 3 ap3 Triage Assessment: 14:34 General: Appears in no apparent distress. Behavior is calm, cooperative. Pain: Denies ap3 pain. Neuro: Level of Consciousness is awake, alert, obeys commands, Oriented to person, place, time, situation, Appropriate for age Reports confusion that occurred around 1200 today. Cardiovascular: Patient's skin is warm and dry. Respiratory: Airway is patent Respiratory effort is even, unlabored, Respiratory pattern is regular, symmetrical. Historical: - Allergies: 14:34 No Known Allergies; ap3 - PMHx: 14:34 diabetes mellitus; Hypercholesterolemia; Hypertensive disorder; Hypothyroidism; ap3 - Immunization history:: Adult Immunizations up to date, Client reports receiving the 2nd dose of the Covid vaccine. - Social history:: Smoking status: Patient denies any tobacco usage or history of. - Family history:: not pertinent. - Hospitalizations: : No recent hospitalization is reported. Screenin:35 Abuse screen: Denies threats or abuse. Nutritional screening: No deficits noted. ap3 Tuberculosis screening: No symptoms or risk factors identified. 15:06 [facility] ED Fall Risk Assessment (Adult) History of falling in the last 3 months, me1 including since admission No falls in past 3 months (0 pts) Confusion or Disorientation No (0 pts) Intoxicated or Sedated Yes (3 pts) Impaired Gait No (0 pts) Mobility Assist Device Used No (0 pt) Altered Elimination No (0 pt) Score/Fall Risk Level 0 - 2 = Low Risk Maintained a safe environment, Provided non-skid footwear, Hourly rounding (assess needs \\T\\ fall precautionary measures) done. Abuse screen: Denies threats or abuse. Nutritional screening: No deficits noted. Tuberculosis screening: No symptoms or risk factors identified. Assessment: 15:06 General: Appears comfortable, well groomed, well developed, well nourished, Behavior is me1 calm, cooperative, appropriate for age, Reports EMS called for a patient who was confused at around 1200 today. patient reports the symptoms had resolved prior to EMS arrival. patient is currently A/O X"s 4. States "I think my blood sugar dropped too low. I was making a peanut butter sandwich and the next thing I know I wake up and my daughter was trying to get me to eat.". Pain: Denies pain. Neuro: Level of Consciousness is awake, alert, obeys commands, Oriented to person, place, time, situation, Appropriate for age. Cardiovascular: Capillary refill < 3 seconds Patient's skin is warm and dry. Respiratory: Airway is patent Respiratory effort is even, unlabored, Respiratory pattern is regular, symmetrical. GI:. GI: Abdomen is obese. :. Musculoskeletal: Circulation, motion, and sensation intact. Capillary refill < 3 seconds. Vital Signs: 14:22 BP 138 / 74; Pulse 58; Resp 16; Pulse Ox 95% on R/A; me1 14:32 BP 138 / 74; Pulse 56; Resp 17; Temp 98.4; Pulse Ox 100% ; Weight 83.91 kg; Height 5 ap3 ft. 4 in. ; Pain 0/10; 14:45 BP 145 / 68; Pulse 56; Resp 16; Pulse Ox 98% on R/A; me1 15:00 BP 115 / 61; Pulse 56; Resp 16; Pulse Ox 97% on R/A; me1 14:32 Body Mass Index 31.75 (83.91 kg, 162.56 cm) ap3 14:32 Pain Scale: Adult ap3 ED Course: 14:29 Patient arrived in ED. ph 14:30 Raffy Kowalski MD is Attending Physician. rn 14:34 Triage completed. ap3 14:35 Arm band placed on right wrist. ap3 14:35 Patient has correct armband on for positive identification. Bed in low position. Call ap3 light in reach. Side rails up X2. armature tester on. Pulse ox on. NIBP on. 14:36 Pamela Gray, RN is Primary Nurse. me1 14:43 CT Head Brain wo Cont In Process Unspecified. EDMS 14:50 Chest Single View XRAY In Process Unspecified. EDMS 14:54 No provider procedures requiring assistance completed. Maintain EMS IV. Dressing me1 intact. Good blood return noted. Site clean \\T\\ dry. Gauge \\T\\ site: 20g RAC. 14:55 Basic Metabolic Panel Sent. me1 14:55 CBC with Diff Sent. me1 14:55 Hepatic Function Sent. me1 14:55 Magnesium Sent. me1 14:55 Protime (+inr) Sent. me1 14:55 Ptt, Activated Sent. me1 14:55 Troponin High Sensitivity Sent. me1 15:06 Provided Education on: POC. Verbalized understanding. . me1 16:45 US Abdomen Limited In Process Unspecified. EDMS Administered Medications: 17:35 Drug: NS 0.9% IV 500 ml IV at bolus once Route: IV; Rate: bolus; Site: right ph antecubital; 18:37 Follow up: Response: No adverse reaction; IV Status: Completed infusion ph Medication: 15:06 VIS not applicable for this client. me1 Outcome: 17:29 Discharge ordered by . rn 18:37 Patient left the ED. Signatures: Dispatcher [employer] EDMS Raffy Kowalski MD MD rn Hall, Patricia, RN RN Amna Soriano RN RN [facility] Pamela Gray, RIVERA RN me1 Corrections: (The following items were deleted from the chart) 15:06 14:32 Chief complaint: EMS states: they were called for a patient who was confused at [facility] around 1200 today. patient reports the symptoms had resolved prior to EMS arrival. patient is currently A/O X"s 4 during triage. EMS established a 20g in the right AC no meds given ap3
--- NOTE | 2023-03-04 17:30 | EDPHYS ---
Physician Documentation [facility] Name: Joanne Abraham Age: 83 yrs Sex: Female : 1940 Arrival Date: 03/04/2023 Time: 14:04 Bed 7 Private MD: ED Physician Raffy Kowalski HPI: 03/04 16:01 This 83 yrs old Female presents to ER via EMS with complaints of Altered Mental Status rn - resolved. 16:01 The patient presents with confusion, decreased responsiveness. Onset: The rn symptoms/episode began/occurred just prior to arrival. Possible causes: low blood sugar. Associated signs and symptoms: Pertinent positives: confusion, Pertinent negatives: abdominal pain, blurred vision, chest pain, combativeness, headache, seizure, shortness of breath, weakness. Current symptoms: In the emergency department the patient's symptoms have improved. The patient has experienced a previous episode. The patient has not recently seen a physician. Patient reports was fixing her self lunch when started to feel slow thought process, generalized fatigue, has happened before so thought it was low blood sugar, walked into the den and sat down and then does not recall other events. Daughter had her take a few bites of peanut butter sandwich, call 911, EMS got glucose in the 90s and patient felt better. No fever. Denies recent illness. No chest pain or shortness of breath. No abdominal pain. No focal weakness or neurological complaint at this time.. Historical: - Allergies: 14:34 No Known Allergies; ap3 - PMHx: 14:34 diabetes mellitus; Hypercholesterolemia; Hypertensive disorder; Hypothyroidism; ap3 - Immunization history:: Adult Immunizations up to date, Client reports receiving the 2nd dose of the Covid vaccine. - Social history:: Smoking status: Patient denies any tobacco usage or history of. - Family history:: not pertinent. - Hospitalizations: : No recent hospitalization is reported. ROS: 16:01 Constitutional: Negative for fever, chills, and weight loss, Neck: Negative for injury, rn pain, and swelling, Cardiovascular: Negative for chest pain, palpitations, and edema, Respiratory: Negative for shortness of breath, cough, wheezing, and pleuritic chest pain, Abdomen/GI: Negative for abdominal pain, nausea, vomiting, diarrhea, and constipation, Back: Negative for injury and pain, MS/Extremity: Negative for injury and deformity, Skin: Negative for injury, rash, and discoloration, Neuro: Negative for headache, weakness, numbness, tingling, and seizure, Exam: 15:57 ECG was reviewed by the Attending Physician. rn 16:01 Constitutional: This is a well developed, well nourished patient who is awake, alert, rn and in no acute distress. Head/Face: Normocephalic, atraumatic. ENT: Dry mucous membranes Cardiovascular: Regular rate and rhythm. No pulse deficits. Respiratory: No increased work of breathing, no retractions or nasal flaring. Abdomen/GI: Soft, non-tender Skin: Warm, dry MS/ Extremity: Pulses equal, no cyanosis. Neuro: Awake and alert, GCS 15, oriented to person, place, time, and situation. Cranial nerves II-XII grossly intact. Motor strength 5/5 in all extremities. Sensory grossly intact. Cerebellar exam normal. Vital Signs: 14:22 BP 138 / 74; Pulse 58; Resp 16; Pulse Ox 95% on R/A; me1 14:32 BP 138 / 74; Pulse 56; Resp 17; Temp 98.4; Pulse Ox 100% ; Weight 83.91 kg; Height 5 ap3 ft. 4 in. ; Pain 0/10; 14:45 BP 145 / 68; Pulse 56; Resp 16; Pulse Ox 98% on R/A; me1 15:00 BP 115 / 61; Pulse 56; Resp 16; Pulse Ox 97% on R/A; me1 14:32 Body Mass Index 31.75 (83.91 kg, 162.56 cm) ap3 14:32 Pain Scale: Adult ap3 MDM: 14:30 Patient medically screened. rn 17:27 Differential Diagnosis: CVA, electrolyte abnormality, hypoglycemia, intracranial bleed, rn volume depletion. Data reviewed: vital signs, nurses notes, lab test result(s), EKG, radiologic studies, CT scan, plain films, and as a result, I will discharge patient. 17:28 Counseling: I had a detailed discussion with the patient and/or guardian regarding the rn historical points, exam findings, and any diagnostic results supporting the discharge/admit diagnosis, lab results, radiology results, the need for outpatient follow up, to return to the emergency department if symptoms worsen or persist or if there are any questions or concerns that arise at home. Response to treatment: the patient's symptoms have markedly improved after treatment, the patient's symptoms have resolved after treatment, the patient's condition has returned to base line, the patient is now symptom free, and as a result, I will discharge patient. Special discussion: I discussed with the patient/guardian in detail that at this point there is no indication for admission to the hospital. It is understood, however, that if the symptoms persist or worsen the patient needs to return immediately for re-evaluation. Based on the history and exam findings, there is no indication for further emergent testing or inpatient evaluation. I discussed with the patient/guardian the need to see the primary care provider for further evaluation of the symptoms. ED course: Patient completely back to baseline. No acute findings and workup here other than possible fatty liver and dehydration. Glucose is back up to normal range. Patient states feels entirely fine. Patient wants to go home and will discharge with return precautions. I have personally reviewed all of the results, including but not limited to blood tests and imaging deemed necessary to safely discharge this patient at this time. All results given to and printed out for patient. I personally went over all the results with the patient and answered all questions. Patient will follow-up with PCP and or specialist as discussed. Return precautions given and understood.. 03/04 14:36 Order name: Basic Metabolic Panel; Complete Time: 15:39 03/04 14:36 Order name: CBC with Diff; Complete Time: 15:39 03/04 14:36 Order name: Hepatic Function; Complete Time: 15:39 03/04 14:36 Order name: Magnesium; Complete Time: 15:39 03/04 14:36 Order name: Protime (+inr); Complete Time: 15:39 03/04 14:36 Order name: Ptt, Activated; Complete Time: 15:39 03/04 14:36 Order name: Troponin High Sensitivity; Complete Time: 15:39 03/04 14:36 Order name: CT Head Brain wo Cont; Complete Time: 15:39 03/04 14:36 Order name: Chest Single View XRAY; Complete Time: 15:39 03/04 15:42 Order name: US Abdomen Limited rn 03/04 14:36 Order name: EKG; Complete Time: 14:36 03/04 14:36 Order name: Cardiac monitoring; Complete Time: 15:06 rn 03/04 14:36 Order name: EKG - Nurse/Tech; Complete Time: 15:06 rn 03/04 14:36 Order name: IV Saline Lock; Complete Time: 14:55 rn 03/04 14:36 Order name: Labs collected and sent; Complete Time: 14:55 rn 03/04 14:36 Order name: NPO; Complete Time: 14:55 rn 03/04 14:36 Order name: O2 Per Protocol; Complete Time: 14:55 rn 03/04 14:36 Order name: O2 Sat Monitoring; Complete Time: 14:55 rn 03/04 14:36 Order name: PO challenge; Complete Time: 14:55 rn EC:57 Rate is 53 beats/min. Rhythm is regular. QRS [place] is Normal. [place] interval is prolonged rn at 240 msec. QRS interval is normal. QT interval is normal. No Q waves. T waves are Normal. No ST changes noted. Clinical impression: 1st degree heart block and Sinus bradycardia. Interpreted by me. Reviewed by me. Administered Medications: 17:35 Drug: NS 0.9% IV 500 ml IV at bolus once Route: IV; Rate: bolus; Site: right ph antecubital; 18:37 Follow up: Response: No adverse reaction; IV Status: Completed infusion ph Disposition Summary: 03/04/23 17:29 Discharge Ordered Notes: Location: Home rn Problem: new rn Symptoms: have improved rn Condition: Stable rn Diagnosis - Hypoglycemia, unspecified rn - Altered mental status, unspecified rn - Dehydration rn Followup: rn - With: Private Physician - When: As needed - Reason: Recheck today's complaints, Re-evaluation by your physician Discharge Instructions: - Discharge Summary Sheet rn - Dehydration, Adult rn - Hypoglycemia rn Forms: - Medication Reconciliation Form rn - Thank You Letter rn - Antibiotic cardiology rn - Prescription Opioid Use rn - Patient Portal Instructions rn - Leadership Thank You Letter rn Signatures: Dispatcher [employer] Raffy Shipley MD MD rn Hall, Patricia RN RN Amna Soriano, RN RN ap3
--- NOTE | 2023-03-04 18:20 | RAD REPORT ---
EXAM DESCRIPTION: US - Abdomen Exam Limited - 03/04/2023 4:43 pm CLINICAL HISTORY: abnormal LFTs COMPARISON: No comparisons TECHNIQUE: Sonographic grayscale and color flow images of the right upper abdominal quadrant were o btained. FINDINGS: The gallbladder is contracted limiting evaluation. No evidence of shadowing calculi. No pe richolecystic fluid or gallbladder wall thickening. The common bile duct is normal measuring 4 mm. The liver demonstrates mild diffuse parenchymal hyperechogenicity suggesting steatosis. No findings of intrahepatic biliary dilatation. Incidentally noted exophytic right interpolar 6.0 x 6.5 cm anechoic renal cyst. IMPRESSION: Contracted gallbladder limiting evaluation. No findings to suggest cholelithiasis or acu te cholecystitis allowing for this limitation. No intra or extrahepatic biliary ductal dilation. Is mild diffuse hepatic steatosis. Incidentally noted right renal interpolar 6.5 cm cyst.
[2023-03-04 20:31] VITALS: BP 115/61; TEMP 98.4; O2SAT 97
== END ==
LOC: ER 14:04
DX: E11.649 Type 2 diabetes mellitus with hypoglycemia without coma (principal); E86.0 Dehydration; I10 Essential (primary) hypertension
CPT/HCPCS: 85025; 80048; 36415; 83735; 85610; 80076; 85730; 84484; 70450; 71045; 76705; 96360; 99284; J7040